=== PATIENT | female | born 1985 | race Caucasian/White ===

== ENCOUNTER 2016-09-11 03:25 | Emergency (ER) | payer SELFPAY ==
[2016-09-11 03:41] VITALS: BP 134/97
--- NOTE | 2016-09-11 04:09 | ED ---
I, Elian,Renan, scribed for Sanchez Levin MD on 09/11/16 at 0343 . - HPI Summary HPI Summary: This 31 y/o female presents to ED for back pain and vaginal bleeding since 0100 AM today. Pt is currently 35 weeks with due date on 10/17/2016. Pt states her abd pain or "contraction" has been regularly paced every 4 minutes. Positive back pain. Negative calf swelling today. PMHx includes prior C- section. Pt is current smoker with half pack a day tobacco use. Pt recently relocated to [place], [place] from [place] 5 days ago, and she does not have any primary care established. - History of Current Complaint Chief Complaint: EDOBProblems Stated Complaint: 35 WKS PREG/VAG BLEED Time Seen by Provider: 09/11/16 03:32 Hx Obtained From: Patient Chief Complaint: Pain, Vaginal Bleeding Onset/Duration: Started Hours Ago, Atraumatic, Still Present Timing: Constant Pain Intensity: 8 Location of Pain: Suprapubic Character: Dull Aggravating Factors: Nothing Alleviating Factors: Nothing Associated Signs and Symptoms: Positive: Back Pain, Vaginal Bleeding or Discharge - Allergies/Home Medications Allergies/Adverse Reactions: Allergies Allergy/AdvReac Type Severity Reaction Status Date / Time No Known Drug Allergy Allergy Unknown Verified 09/11/16 03:39 Reaction Details PMH/Surg Hx/FS Hx/Imm Hx Infectious Disease History: Denies: Traveled Outside the in Last 30 Days - Social History Alcohol Use: None Hx Substance Use: No Substance Use Type: Reports: None Hx Tobacco Use: Yes Smoking Status (MU): Heavy Every Day Tobacco Smoker Review of Systems Negative: Fever Positive: Abdominal Pain Positive: other - vaginal bleeding Positive: Other - back pain All Other Systems Reviewed And Are Negative: Yes Physical Exam - Summary Physical Exam Summary: The patient is well-nourished in mild to moderate distress. The skin is warm and dry and skin color reflects adequate perfusion. HEENT: The head is normocephalic and atraumatic. The pupils are equal and reactive. The conjunctivae are clear and without drainage. Nares are patent and without drainage. Mouth reveals moist mucous membranes and the throat is without erythema and exudate. The external ears are intact. The ear canals are patent and without drainage. The tympanic membranes are intact. Neck is supple with full range of motion and non-tender. There are no carotid bruits. There is no neck vein distension. Respiratory: Chest is non-tender. Lungs are clear to auscultation and breath sounds are symmetrical and equal. Cardiovascular: Hear is regular rate and rhythm. There is no murmur or rub auscultated. There is no peripheral edema and pulses are symmetrical and equal. Abdomen: The abdomen is distended and . Musculoskeletal: There is no back pain noted. Extremities are non-tender with full range of motion. There is good capillary refill. There is no peripheral edema or calf tenderness elicited. Neurological: Patient is alert and oriented to person, place and time. The patient has symmetrical motor strength in all four extremities. Cranial nerves are grossly intact. Deep tendon reflexes are symmetrical and equal in all four extremities. Psychiatric: The patient has an appropriate affect and does not exhibit any anxiety or depression. - Physical Exam Triage Information Reviewed: Yes Vital Signs Reviewed: Yes Diagnostics - Vital Signs Vital Signs Temp Pulse Resp Pulse Ox 09/11/16 03:28 98 F 110 20 98 - Laboratory Lab Statement: Any lab studies that have been ordered have been reviewed, and results considered in the medical decision making process. Course/Dx - Diagnoses Provider Diagnoses: , labor - Provider Notifications Discussed Care Of Patient With: Darlene Gimenez Discussed With Above Provider: 03:54 Discharge - Discharge Plan Condition: Stable Disposition: TRANSFER TO OB ([facility]) Referrals: Non Staff,Doctor [Primary Care Provider] - The documentation as recorded by the Elian chaves Soohyun accurately reflects the service I personally performed and the decisions made by me, Sanchez Levin MD.
[2016-09-11 05:18] LABS: Hematocrit 35 % (35-47); Hemoglobin 11.8 g/dl (12.0-16.0); Mean Corpuscular HGB Conc 34 g/dl (31-36); Mean Corpuscular Hemoglobin 31 pg (27-31); Mean Corpuscular Volume 91 fL (80-97); Mean Platelet Volume 9 um3 (7.4-10.4); Red Blood Count 3.88 10^6/ul (4.0-5.4); Red Cell Distribution Width 13 % (10.5-15); White Blood Count 17.1 10^3/ul (3.5-10.8)
[2016-09-11 05:28] LABS: Albumin 3.2 g/dL (3.2-5.2); BUN/Creatinine Ratio 13.3 (8-20); Calcium 8.8 mg/dL (8.6-10.3); EGFR African American 116.7 (>60); EGFR Non-African American 90.7 (>60); Globulin 2.8 g/dL (2-4); Total Bilirubin 0.4 mg/dL (0.2-1.0)
[2016-09-11 05:31] LABS: Potassium 4.7 mmol/L (3.5-5.0)
== END 2016-09-11 04:00 | disposition other institution (70) ==
LOC: ED 03:25
DX: Z34.90 Encounter for supervision of normal pregnancy, unspecified, unspecified trimester (principal); M54.9 Dorsalgia, unspecified; N93.9 Abnormal uterine and vaginal bleeding, unspecified; R10.9 Unspecified abdominal pain; F17.210 Nicotine dependence, cigarettes, uncomplicated
CPT/HCPCS: 36415; 80053; 85025; 85610; 85730; 86850; 86900; 86901; 99283

== ENCOUNTER 2016-09-11 04:21 | Inpatient (IN) | payer SELFPAY ==
[2016-09-11] MEDS ORDERED: OBEPIDURAL* 250 ML ONE (05:30)
[2016-09-11 06:14] LABS: Manual Entry Verification CAR0052; Rapid HIV INT CONT QC Line Present; Rapid HIV Kit Lot# F336002
[2016-09-11] MEDS ORDERED: Famotidine TAB* 20 MG PO PRN (06:31)
[2016-09-11] MEDS ORDERED: EPHEDrine (Pressors)* 50 MG/ML VIAL IV PUSH PRN (06:31)
[2016-09-11] MEDS ORDERED: Sodium Citrate/Citric Acid* 15 ML UDC PO PRN (06:31)
[2016-09-11] MEDS ORDERED: Phenylephrine IV* 40 MCG/ML 10 ML SYRINGE IV PUSH PRN (06:31)
[2016-09-11] MEDS ORDERED: OBEPIDURAL* 250 ML EPIDURAL SCH (07:00)
[2016-09-11 07:21] LABS: Benzodiazepine Urine Screen None Detected (None Detect)
[2016-09-11] MEDS ORDERED: Oxytocin in LR* 20 UNITS/1,000 ML BAG IVPB ONE (09:05)
[2016-09-11 09:49] LABS: Syphilis Index < 0.1 Index
[2016-09-11] MEDS ORDERED: Lidocaine 1% MPF* 2 ML VIAL ONE (10:24)
[2016-09-11] MEDS ORDERED: Acetaminophen TAB* 325 MG PO PRN (12:20)
[2016-09-11] MEDS ORDERED: Witch Hazel PAD* JAR TOPICAL PRN (12:20)
[2016-09-11] MEDS ORDERED: Tetan/Diph/Pertus SYR(Tdap)* 0.5 ML SYR(BOOSTRIX) use SYR IM ONE (12:20)
[2016-09-11] MEDS ORDERED: Dibucaine 1% 28.35 GM TUBE PR PRN (12:20)
[2016-09-11] MEDS ORDERED: Glycerin ADULT SUPP PR PRN (12:20)
[2016-09-11] MEDS ORDERED: Simethicone CHEW TAB* 80 MG PO SCH (12:30)
[2016-09-11] MEDS ORDERED: Oxytocin in LR* 20 UNITS/1,000 ML BAG IVPB SCH (13:00)
[2016-09-11] MEDS: Ibuprofen TAB* 600 MG PO PRN (13:57)
[2016-09-11] MEDS: Docusate CAP* 100 MG PO SCH (15:13)
[2016-09-12] MEDS: Docusate CAP* 100 MG PO SCH ×3 (00:28→13:56)
[2016-09-12 01:35] LABS: Benzodiazepine Urine Screen None Detected (None Detect)
[2016-09-12] MEDS: Ibuprofen TAB* 600 MG PO PRN (07:36)
[2016-09-12 07:46] VITALS: BP 124/98
[2016-09-12 07:55] LABS: Hematocrit 36 % (35-47); Hemoglobin 12.3 g/dl (12.0-16.0); Mean Corpuscular HGB Conc 34 g/dl (31-36); Mean Corpuscular Hemoglobin 32 pg (27-31); Mean Corpuscular Volume 92 fL (80-97); Mean Platelet Volume 8 um3 (7.4-10.4); Red Blood Count 3.89 10^6/ul (4.0-5.4); Red Cell Distribution Width 13 % (10.5-15); White Blood Count 13.6 10^3/ul (3.5-10.8)
[2016-09-12] MEDS ORDERED: Ferrous Gluconate TAB* 324 MG TAB PO SCH (09:00)
== END 2016-09-12 15:57 | disposition home or self-care (01) | DRG 775 ==
LOC: MCHOBOUT 04:21 → MCHOB 05:22
PROVIDERS: ADMIT Obstetrics & Gynecology; ATTEND Obstetrics & Gynecology
PROC: 10E0XZZ Delivery of Products of Conception, External Approach (ICD-10-PCS; principal; 2016-09-11)
PROC: 10907ZC Drainage of Amniotic Fluid, Therapeutic from Products of Conception, Via Natural or Artificial Opening (ICD-10-PCS; 2016-09-11)
DX: O60.14X0 Preterm labor third trimester with preterm delivery third trimester, not applicable or unspecified (principal); O99.324 Drug use complicating childbirth; F14.10 Cocaine abuse, uncomplicated; F12.10 Cannabis abuse, uncomplicated; O34.211 Maternal care for low transverse scar from previous cesarean delivery; Z3A.34 34 weeks gestation of pregnancy; Z37.0 Single live birth
CPT/HCPCS: 36415; 76815; 80307; 85025; 86592; 86703; 86762; 87340; 87641; 88307; A9270-GY